=== PATIENT | male | born 1955 | race Caucasian/White ===

== ENCOUNTER 2018-05-24 11:02 | Emergency (ER) | payer OTHER ==
[2018-05-24] MEDS ORDERED: SODIUM CHLORIDE 1,000 ML IV STA (11:06)
[2018-05-24] MEDS ORDERED: KETOROLAC TROMETHAMINE 30 MG/1 ML VIAL IVPUSH ONE (11:06)
[2018-05-24] MEDS ORDERED: morphine CARPU-JECT 4 MG/1 ML DISP.SYRIN IVPUSH ONE (11:06)
[2018-05-24] MEDS ORDERED: ONDANSETRON 4 MG/2 ML VIAL IVPB ONE (11:06)
[2018-05-24] MEDS ORDERED: ONDANSETRON 4 MG/2 ML VIAL ONE (11:16)
[2018-05-24] MEDS ORDERED: KETOROLAC TROMETHAMINE 30 MG/1 ML VIAL ONE (11:16)
[2018-05-24] MEDS ORDERED: morphine SULFATE 4 MG/ML VIAL ONE (11:16)
--- NOTE | 2018-05-24 11:17 | PDOC ---
History of Present Illness - General Chief Complaint: Pain, Acute Stated Complaint: right flank pain Time Seen by Provider: 05/24/18 11:06 History Source: Patient Exam Limitations: No Limitations - History of Present Illness Initial Comments: 05/24/18 11:12 62-year-old male with past medical history of renal colic presents with sudden onset of right flank pain starting 2 hours ago. The patient reports it feels like his prior renal colic. Reports his pain is constant. Feels some nausea but denies vomiting. No fevers or chills or dysuria hematuria. Took no medications prior to arrival. Past History - Past Medical History Allergies/Adverse Reactions: Allergies Allergy/AdvReac Type Severity Reaction Status Date / Time No Known Allergies Allergy Verified 05/24/18 11:03 Home Medications: Ambulatory Orders Naproxen 500 mg PO BID PRN #20 tablet 05/24/18 Ondansetron HCl [Zofran] 4 mg PO Q8H PRN #15 tablet 05/24/18 Anemia: No Asthma: No Cancer: No Cardiac Disorders: No CVA: No COPD: No CHF: No Dementia: No Diabetes: No GI Disorders: No Disorders: No HTN: No Hypercholesterolemia: No Kidney Stones: Yes Liver Disease: No Seizures: No Thyroid Disease: No - Surgical History Abdominal Surgery: No Appendectomy: No Cardiac Surgery: No Cholecystectomy: No Lung Surgery: No Neurologic Surgery: No Orthopedic Surgery: Yes (left meniscal tear repair) - Suicide/Smoking/Psychosocial Hx Smoking Status: No Smoking History: Never smoked Have you smoked in the past 12 months: No Number of Cigarettes Smoked Daily: 0 Cigars Per Day: 0 Hx Alcohol Use: No Drug/Substance Use Hx: No Substance Use Type: None Hx Substance Use Treatment: No Review of Systems - Review of Systems Able to Perform ROS?: Yes Comments:: 05/24/18 11:15 GENERAL/CONSTITUTIONAL: [No fever or chills. No weakness. No weight change.] HEAD, EYES, EARS, NOSE AND THROAT: [No change in vision. No ear pain or discharge. No sore throat.] CARDIOVASCULAR: [No chest pain or shortness of breath.] RESPIRATORY: [No cough, wheezing, or hemoptysis.] GASTROINTESTINAL: [No vomiting, diarrhea or constipation. No rectal bleeding.] + right flank pain, nausea. GENITOURINARY: [No dysuria, frequency, or change in urination.] MUSCULOSKELETAL: [No joint or muscle swelling or pain. No neck or back pain.] SKIN AND BREASTS: [No rash or easy bruising.] NEUROLOGIC: [No headache, vertigo, loss of consciousness, or loss of sensation.] PSYCHIATRIC: [No depression or anxiety.] ENDOCRINE: [No increased thirst. No abnormal weight change.] HEMATOLOGIC/LYMPHATIC: [No anemia, easy bleeding, or history of blood clots.] ALLERGIC/IMMUNOLOGIC: [No hives or skin allergy. No latex allergy.] *Physical Exam - Physical Exam Comments: 05/24/18 11:17 GENERAL: Awake, alert, and fully oriented, uncomfortable appearing. HEAD: No signs of trauma EYES: EOMI, sclera anicteric, conjunctiva clear ENT: Auricles normal inspection, hearing grossly normal, nares patent, Moist mucosa NECK: Normal ROM, supple ABDOMEN: Soft, mildly TTP RUQ. R flank pain noted. No guarding, no rebound. No masses EXTREMITIES: Normal range of motion, no edema. No clubbing or cyanosis. No cords, erythema, or tenderness NEUROLOGICAL: Cranial nerves II through XII grossly intact. Normal speech, normal gait SKIN: Warm, Dry, normal turgor, no rashes or lesions noted. ED Treatment Course - LABORATORY CBC & Chemistry Diagram: 05/24/18 11:15 05/24/18 11:15 Medical Decision Making - Medical Decision Making 05/24/18 11:17 I suspect the patient likely has renal colic. We'll obtain labs, urinalysis, urine culture. The CAT scanner is currently in-service and unavailable for us for use. However, I have a high pretest probability that this is renal colic. We 'll obtain a renal ultrasound and reassess after pain medication. 05/24/18 12:29 Ultrasound demonstrates probable bilateral nephrolithiasis with no evidence of hydronephrosis. CBC, BMP 05/24/18 11:15 05/24/18 11:15 CMP Sodium 135 mmol/L (136-145) L 05/24/18 11:15 Potassium 4.4 mmol/L (3.5-5.1) 05/24/18 11:15 Chloride 102 mmol/L (98-107) 05/24/18 11:15 Carbon Dioxide 22 mmol/L (22-28) 05/24/18 11:15 Anion Gap 11 MMOL/L (8-16) 05/24/18 11:15 BUN 26 mg/dl (7-18) H 05/24/18 11:15 Creatinine 1.2 mg/dl (0.6-1.3) 05/24/18 11:15 Creat Clearance w eGFR > 60 (>60) 05/24/18 11:15 Random Glucose 170 mg/dl (74-106) H 05/24/18 11:15 Calcium 9.7 mg/dl (8.4-10.2) 05/24/18 11:15 Total Bilirubin 0.9 mg/dl (0.2-1.0) 05/24/18 11:15 AST 26 U/L (10-42) 05/24/18 11:15 ALT 33 U/L (10-40) 05/24/18 11:15 Alkaline Phosphatase 56 U/L (32-92) 05/24/18 11:15 Total Protein 7.6 g/dl (6.4-8.3) 05/24/18 11:15 Albumin 4.7 g/dl (3.5-5.0) 05/24/18 11:15 Urine Test Results Urine Color Yellow 05/24/18 11:06 Urine Appearance Clear 05/24/18 11:06 Urine pH 5.0 (4.5-8) 05/24/18 11:06 Ur Specific [place] >= 1.030 (1.010-1.035) 05/24/18 11:06 Urine Protein Trace (NEGATIVE) 05/24/18 11:06 Urine Glucose (UA) Negative (NEGATIVE) 05/24/18 11:06 Urine Ketones Negative (NEGATIVE) 05/24/18 11:06 Urine Blood 3+ (NEGATIVE) H 05/24/18 11:06 Urine Nitrite Negative (NEGATIVE) 05/24/18 11:06 Urine Bilirubin Negative (NEGATIVE) 05/24/18 11:06 Ur Leukocyte Esterase Negative (NEGATIVE) 05/24/18 11:06 The patient feels significant relief with the medications. Workup demonstrated renal colic. Patient declines Flomax as reports a previous time he took it, he was reporting some sexual dysfunction. There is no evidence of urinary tract infection. We'll prescribe naproxen and Zofran and have patient follow-up as an outpatient with urology. Patient's will drive patient home. I discussed the physical exam findings, ancillary test results and final diagnoses with the patient. I answered all of the patient's questions. The patient was satisfied with the care received and felt comfortable with the discharge plan and treatment plan. The patient will call their primary care physician within 24 hours to arrange follow-up and will return to the Emergency Department with any new, persistant or worsening symptoms. *DC/Admit/Observation/Transfer Diagnosis at time of Disposition: Renal colic - Discharge Dispostion Disposition: HOME Condition at time of disposition: Improved Decision to Admit order: No - Prescriptions Prescriptions: Naproxen 500 mg PO BID PRN #20 tablet PRN Reason: Pain Ondansetron HCl [Zofran] 4 mg PO Q8H PRN #15 tablet PRN Reason: Nausea - Referrals Referrals: Glen Ambrocio MD [Staff Physician] - - Patient Instructions Printed Discharge Instructions: DI for Kidney Stones Additional Instructions: Please drink plenty of fluids and rest. Take 500 mg naproxen every 12 hours as needed for pain. For nausea, you take take a tablet of zofran every 8 hours as needed. Please follow up with the urologist. - Post Discharge Activity
[2018-05-24 11:26] LABS: URINE APPEARANCE Clear; URINE BILIRUBIN Negative (NEGATIVE); URINE COLOR Yellow; URINE GLUCOSE (UA) Negative (NEGATIVE); URINE KETONE Negative (NEGATIVE); URINE LEUK ESTERASE Negative (NEGATIVE); URINE NITRITE Negative (NEGATIVE); URINE PROTEIN Trace (NEGATIVE); URINE UROBILINOGEN 0.2 (0.2-1.0)
[2018-05-24 11:31] LABS: BASO % 0.6 % (0-2.0); EOS % 0.7 % (0-4.5); HEMATOCRIT 49.3 % (35.4-49); HEMOGLOBIN 16.6 GM/dl (11.7-16.9); LYMPH % 12.3 % (8-40); MCH 29.6 pg (25.7-33.7); MCHC 33.8 g/dl (32.0-35.9); MEAN CELL VOLUME 87.8 fl (80-96); MONO % 4.4 % (3.8-10.2); PLATELET COUNT 183 K/MM3 (134-434); RBC 5.62 M/mm3 (4.00-5.60); RDW 11.8 % (11.9-15.9); WHITE BLOOD COUNT 10.7 K/mm3 (4.0-10.8)
[2018-05-24 11:33] VITALS: PULSE 61; TEMP 98.1; BMI 26.4
[2018-05-24 11:46] LABS: ALBUMIN 4.7 g/dl (3.5-5.0); ALK PHOS 56 U/L (32-92); ANION GAP 11 MMOL/L (8-16); BILIRUBIN,TOTAL 0.9 mg/dl (0.2-1.0); BLOOD UREA NITROGEN 26 mg/dl (7-18); CALCIUM 9.7 mg/dl (8.4-10.2); CHLORIDE 102 mmol/L (98-107); CO2 22 mmol/L (22-28); CREATININE 1.2 mg/dl (0.6-1.3); GLUCOSE,RANDOM 170 mg/dl (74-106); POTASSIUM 4.4 mmol/L (3.5-5.1); SGOT/AST 26 U/L (10-42); SGPT/ALT 33 U/L (10-40); SODIUM 135 mmol/L (136-145); TOT PROT 7.6 g/dl (6.4-8.3)
[2018-05-24 12:40] VITALS: BP 157/92
[2018-05-24 13:13] LABS: EPI CELLS 1+ /HPF; URINE BACTERIA FEW /hpf (NEGATIVE)
== END 2018-05-24 12:43 | disposition home or self-care (01) ==
LOC: FER 11:02
PROC: 3E0333Z Introduction of Anti-inflammatory into Peripheral Vein, Percutaneous Approach (ICD-10-PCS; principal; 2018-05-24)
PROC: 3E033NZ Introduction of Analgesics, Hypnotics, Sedatives into Peripheral Vein, Percutaneous Approach (ICD-10-PCS; 2018-05-24)
PROC: 3E033GC Introduction of Other Therapeutic Substance into Peripheral Vein, Percutaneous Approach (ICD-10-PCS; 2018-05-24)
PROC: 3E0337Z Introduction of Electrolytic and Water Balance Substance into Peripheral Vein, Percutaneous Approach (ICD-10-PCS; 2018-05-24)
DX: N23 Unspecified renal colic (principal)
CPT/HCPCS: 36415; 76775-TC; 80053; 81003; 81015; 85025; 87086; 99283-25; J7030

== ENCOUNTER 2019-09-20 21:22 | Emergency (ER) | payer OTHER ==
[2019-09-20] MEDS ORDERED: ONDANSETRON 4 MG/2 ML VIAL ONE (21:31)
[2019-09-20] MEDS ORDERED: KETOROLAC TROMETHAMINE 30 MG/1 ML VIAL ONE (21:31)
[2019-09-20 21:48] VITALS: TEMP 97.5; BMI 26.1
--- NOTE | 2019-09-20 21:56 | PDOC ---
Documentation entered by Yelitza Webster SCRIBE, acting as scribe for Pieter Torres MD. Pieter Torres MD: This documentation has been prepared by the eugenieibe, Yelitza Webster SCRIBE, under my direction and personally reviewed by me in its entirety. I confirm that the documentation accurately reflects all work, treatment, procedures, and medical decision making performed by me. History of Present Illness - General Chief Complaint: Pain, Acute Stated Complaint: ABDOMINAL PAIN Time Seen by Provider: 09/20/19 21:26 History Source: Patient Exam Limitations: No Limitations - History of Present Illness Initial Comments: 09/20/19 21:37 The patient is a 63 year old male with a significant PMH of kidney stones who presents to the ED with 1 day of diffuse abdominal pain. As per patient, the pain began this morning and progressively worsened this afternoon, he reports several episodes of emesis. He states having similar pain in the past and was diagnosed with kidney stones. He reports his urine is darker than usual but denies hematuria. PAST MEDICAL HISTORY: Kidney stones. PAST SURGICAL HISTORY: Left meniscal tear repair FAMILY HISTORY: no pertinent history SOCIAL HISTORY: Pt lives with family and is employed. MEDICATIONS: reviewed ALLERGIES: As per nursing notes General: No fevers or chills, no weakness, no weight loss HEENT: No change in vision. No sore throat,. No ear pain CardioVascular: No chest pain or shortness of breath Respiratory:No cough, or wheezing. Gastrointestinal: +abdominal pain.+vomiting. No diarrhea or constipation, No rectal bleeding Genitourinary: No dysuria, hematuria, or frequency Musculoskeletal: No joint or muscle pain or swelling Neurologic: No headache, vertigo, dizziness or loss of consciousness Psychiatric: nor depression Skin: No rashes or easy bruising Endocrine: no increased thirst or abnormal weight change Allergic: no skin or latex allergy All other systems reviewed and normal General: Well-nourished well-developed individual, no acute distress HEENT: Throat: Normal, tonsils normal, no erythema or exudate Neck: Supple, no meningeal signs, no lymphadenopathy Eyes::Pupils equal reactive and round, extraocular motion intact Chest: Nontender to palpation Cardiac: S1-S2 normal, regular rate and rhythm, no murmurs rubs or gallops Respiratory: Lungs clear to auscultation bilateral Abdomen:+Tenderness to palpation on the right flank. No CVA tenderness. Soft, nondistended, normal bowel sounds Extremities: Warm, dry, no cyanosis, clubbing, or edema Skin: No rashes Neuro: Alert and oriented x3, nonfocal exam, grossly intact, normal gait Psych: Normal mood and affect Assessment and plan: This is a 63-year-old male who comes in complaining of abdominal discomfort with some vomiting. Patient had tenderness on his right flank. Patient states that the last time he had similar pain was when he had a stent kidney stone. Renal colic work-up initiated including CBC, comp, IV fluids, pain medications and CAT scan CAT scan did show a 3 mm stone at the distal UVJ on the right side. Patient's pain resolved while here in the ED so he may have passed the stone. Patient however had pain medication and Zofran sent to his pharmacy and discharged home. Past History - Past Medical History Allergies/Adverse Reactions: Allergies Allergy/AdvReac Type Severity Reaction Status Date / Time No Known Allergies Allergy Verified 05/24/18 11:03 Home Medications: Ambulatory Orders Naproxen [Naprosyn] 500 mg PO BID #30 tablet 09/21/19 Ondansetron [Zofran *Odt*] 8 mg SL TID #12 od.tablet 09/21/19 Anemia: No Asthma: No Cancer: No Cardiac Disorders: No CVA: No COPD: No CHF: No Dementia: No Diabetes: No GI Disorders: No Disorders: No HTN: No Hypercholesterolemia: No Kidney Stones: Yes Liver Disease: No Seizures: No Thyroid Disease: No - Surgical History Abdominal Surgery: No Appendectomy: No Cardiac Surgery: No Cholecystectomy: No Lung Surgery: No Neurologic Surgery: No Orthopedic Surgery: Yes (left meniscal tear repair) - Psycho Social/Smoking Cessation Hx Smoking Status: No Smoking History: Never smoked Have you smoked in the past 12 months: No Number of Cigarettes Smoked Daily: 0 Cigars Per Day: 0 Hx Alcohol Use: No Drug/Substance Use Hx: No Substance Use Type: None Hx Substance Use Treatment: No *Physical Exam - Vital Signs Last Vital Signs Temp Pulse Resp BP Pulse Ox 97.5 F L 73 20 173/94 H 100 09/20/19 21:45 09/20/19 21:45 09/20/19 21:45 09/20/19 21:45 09/20/19 21:45 ED Treatment Course - LABORATORY CBC & Chemistry Diagram: 09/20/19 22:00 09/20/19 22:00 - RADIOLOGY Radiology Studies Ordered: Category Date Time Status SPIRAL- RENAL-STONE CT [CT] Stat CT Scan 09/20/19 21:50 Ordered Discharge - Discharge Information Problems reviewed: Yes Clinical Impression/Diagnosis: Renal colic on right side Condition: Stable Disposition: HOME - Admission No - Additional Discharge Information Prescriptions: Naproxen [Naprosyn] 500 mg PO BID #30 tablet Ondansetron [Zofran *Odt*] 8 mg SL TID #12 od.tablet - Follow up/Referral Referrals: Randolph Sanchez MD [Primary Care Provider] - Michael Johnson MD [Staff Physician] - - Patient Discharge Instructions Additional Instructions: Your CAT scan shows that you have a 3 mm kidney stone that is just about ready to pass into the bladder. I have sent a prescription to your pharmacy for some pain medication and nausea medication. Follow-up with your urologist if you need a urologist call Dr. Johnson. Return to the emergency department immediately with ANY new, persistent or worsening symptoms. Continue any medications as previously prescribed by your physician. You should follow up with your primary doctor as soon as possible regarding today's emergency department visit. . Please make sure your doctor reviews the results of your emergency evaluation. Thank you for coming to the Emergency Department today for your care. It was a pleasure to see you today. Please note that your evaluation is INCOMPLETE until you follow-up with your doctor. - Post Discharge Activity
[2019-09-20 22:08] LABS: HEMATOCRIT 44.9 % (35.4-49); HEMOGLOBIN 15.1 GM/dl (11.7-16.9); MCH 29.6 pg (25.7-33.7); MCHC 33.5 g/dl (32.0-35.9); MEAN CELL VOLUME 88.1 fl (80-96); MEAN PLT VOLUME 9.6 fl (7.5-11.1); PLATELET COUNT 161 K/MM3 (134-434); RDW 12.1 % (11.9-15.9); WHITE BLOOD COUNT 9.8 K/mm3 (4.0-10.8)
[2019-09-20 22:20] LABS: ALBUMIN 4.1 g/dl (3.4-5.0); CALCIUM 9.1 mg/dl (8.5-10); CREATININE 1.3 mg/dl (0.55-1.3); POTASSIUM 4.1 mmol/L (3.5-5.1); TOT PROT 7.1 g/dl (6.4-8.2)
[2019-09-20 22:26] LABS: PLATELET ESTIMATE ADEQUATE
[2019-09-21 01:40] VITALS: BP 149/82; PULSE 71
== END 2019-09-21 01:45 | disposition home or self-care (01) ==
LOC: FER 21:22
DX: N23 Unspecified renal colic (principal); N20.0 Calculus of kidney
CPT/HCPCS: 36415; 74176-TC; 80053; 81003; 81015; 85025; 99285-25